=== PATIENT | male | born 1975 | race Caucasian/White ===

== ENCOUNTER 2017-07-21 20:34 | Emergency (ER) | payer OTHER ==
[~2017-07-21] VITALS: Ht 185.4 cm; Wt 142.0 kg
[~2017-07-21 20:34] MED LIST: AMOXICILLIN500 MG PO; BACTROBAN OINT22 GM PO; CIPRO500 MG PO; CIPRODEX 0.3%-7.5 ML OT; CLEOCIN HCL150 MG PO; DAYPRO600 M1 PO; FLONASE0.05 MG/AC NS; HYDROCODONE BIT1 T11 PO; MOTRIN800 MG PO; NAPROSYN500 MG PO; NKHM; PEN-VEE K500 MG PO; TRAMADOL HCL50 MG PO; TRIMOX500 MG PO
[2017-07-21] MEDS ORDERED: ULTRAM50 MG PO (22:40)
== END 2017-07-21 23:41 | disposition home or self-care (01) ==
LOC: ED 20:34
DX: S92.341A Displaced fracture of fourth metatarsal bone, right foot, initial encounter for closed fracture (principal); S92.351A Displaced fracture of fifth metatarsal bone, right foot, initial encounter for closed fracture; X50.1XXA Overexertion from prolonged static or awkward postures, initial encounter; Y93.89 Activity, other specified; Y92.89 Other specified places as the place of occurrence of the external cause; Y99.9 Unspecified external cause status

== ENCOUNTER 2018-04-19 18:03 | Emergency (ER) | payer OTHER ==
[~2018-04-19] VITALS: Ht 185.4 cm; Wt 131.5 kg
[~2018-04-19 18:03] MED LIST changes: +ULTRAM50 MG PO
[2018-04-19] MEDS ORDERED: PENICILLIN-VK500 M1 PO (18:18)
[2018-04-19] MEDS ORDERED: Motrin,Rufen800 MG PO (18:18)
== END 2018-04-19 18:35 | disposition home or self-care (01) ==
LOC: ED 18:03
DX: K08.89 Other specified disorders of teeth and supporting structures (principal)

== ENCOUNTER 2018-11-15 17:45 | Emergency (ER) | payer OTHER ==
[~2018-11-15] VITALS: Ht 185.4 cm; Wt 127.0 kg
[~2018-11-15 17:45] MED LIST changes: +Motrin,Rufen800 MG PO; +PENICILLIN-VK500 M1 PO
== END 2018-11-15 19:24 | disposition home or self-care (01) ==
LOC: ED 17:45
DX: S92.341A Displaced fracture of fourth metatarsal bone, right foot, initial encounter for closed fracture (principal); S92.351A Displaced fracture of fifth metatarsal bone, right foot, initial encounter for closed fracture; M25.571 Pain in right ankle and joints of right foot; M79.671 Pain in right foot; Z87.81 Personal history of (healed) traumatic fracture; X58.XXXA Exposure to other specified factors, initial encounter; Y93.89 Activity, other specified; Y92.89 Other specified places as the place of occurrence of the external cause; Y99.0 Civilian activity done for income or pay

== ENCOUNTER → 2023-11-14 | Outpatient (CLI) | payer OTHER ==
[2023-11-14 16:16] LABS: BASO # 0.1 10*3/uL (0.0-0.1); BASO % 0.6 % (0.0-1.0); EOS # 0.3 10*3/uL (0.0-0.4); EOS % 3.5 % (1.0-4.0); HEMATOCRIT 43.6 % (42.0-52.0); LYMPH % 22.1 % (27.0-41.0); MEAN CELL VOLUME 90.8 fl (80.0-94.0); MEAN PLATELET VOLUME 9.3 fl (9.6-12.3); MONO # 0.8 10*3/uL (0.1-1.0); MONO % 9.4 % (3.0-9.0); NEUT # 5.8 10*3/uL (2.3-7.9); NEUT % 64.1 % (47.0-73.0); PLATELET COUNT AUTOMATED 300 10*3/uL (130-400); RED CELL DISTRI WIDTH 12.2 % (0-14.5)
[2023-11-14 18:00] LABS: BF LYMPHOCYTES 20 %; BF MACROPHAGES 76 %; BF NEUTROPHILS 4 %
[2023-11-15 12:07] LABS: ACID FAST SPEC PROCESSING Direct Inoculation (.)
== END | disposition home or self-care (01) ==
LOC: LAB 15:56
PROVIDERS: ATTEND Orthopaedic Surgery
DX: M25.469 Effusion, unspecified knee (principal)